=== PATIENT | female | born 1995 | race African-American/Black ===

== ENCOUNTER 2017-04-13 20:19 | Emergency (ER) | payer MEDICAID, OTHER ==
[~2017-04-13] VITALS: Ht 162.6 cm; Wt 54.4 kg
[~2017-04-13 20:19] MED LIST: BACTRIM DS TAB1 EAC1 ORAL; BACTROBAN 2% OI15 GM TOPIC; NKM
--- NOTE | 2017-04-13 21:42 | Emergency Room Report ---
History of Present Illness General Chief Complaint: Abdominal Pain Source: Patient, Medical Record Present Illness HPI This is a 21-year-old female with history of chronic abdominal pain since she was little per patient. She never had a GI workup. She usually go to the hospital. She had negative CT scan labwork here. She gets with chief complaint of generalized abdominal pain but mostly epigastric area. [place] burning sensation. Onset last night. No nausea no vomiting. No fever or chills. Pain is 7/10. No other complaint. Allergies: Coded Allergies: AMOXICILLIN (Verified Allergy, Mild, Hives, 07/27/12) PENICILLINS (Verified Allergy, Hives, 07/27/12) Patient History Past Medical History: see triage record, old chart reviewed Past Surgical History: none Pertinent Family History: none Social History: Denies: smoking Last Menstrual Period: Mar 172016 Now: No Immunizations: other Reviewed Nursing Documentation: PMH: Agreed, PSxH: Agreed Nursing Documentation-PMH Hx Cardiac Problems: No - MILD SCOLIOSIS Review of Systems Eye: Denies: eye pain, blurred vision ENT: Denies: ear pain, nose congestion, throat swelling Respiratory: Denies: cough, shortness of breath Cardiovascular: Denies: chest pain, palpitations Gastrointestinal: Reports: abdominal pain, Denies: diarrhea, nausea, vomiting Musculoskeletal: Denies: back pain, joint pain Skin: Denies: rash Neurological: Denies: headache, numbness Endocrine: Denies: increased thirst, increased urine Hematologic/Lymphatic: Denies: easy bruising All Other Systems: negative except mentioned in HPI Physical Exam Vital Signs Date Time Temp Pulse Resp B/P (MAP) Pulse Ox O2 Delivery O2 Flow Rate FiO2 04/13/17 20:49 99.0 98 16 111/66 100 Room Air monos unremarkable Sp02 EP Interpretation: reviewed, normal General Appearance: well appearing, no apparent distress, alert Head: normocephalic, atraumatic Eyes: bilateral eye PERRL, bilateral eye EOMI ENT: hearing grossly normal, normal pharynx Neck: full range of motion, supple, no meningismus Respiratory: chest non-tender, lungs clear, normal breath sounds Cardiovascular #1: regular rate, rhythm, no murmur Gastrointestinal: normal bowel sounds, no mass, no organomegaly, no bruit, non- distended, tenderness - Mild epigastric Musculoskeletal: back normal, gait/station normal, normal range of motion Psychiatric: mood/affect normal Skin: warm/dry Medical Decision Making Diagnostic Impression: Primary Impression: Abdominal pain Qualified Codes: R10.13 - Epigastric pain Additional Impression: UTI (urinary tract infection) Qualified Codes: N30.00 - Acute cystitis without hematuria ER Course She with abdominal pain. Pain resolved now. No evidence of ACS, acute abdomen or back here obstruction. She does have urinary tract infection. We'll discharge home. Lab Results Impression labs normal Last Vital Signs Date Time Temp Pulse Resp B/P (MAP) Pulse Ox O2 Delivery O2 Flow Rate FiO2 04/13/17 20:49 99.0 98 16 111/66 100 Room Air Status: improved Disposition: HOME, SELF-CARE Condition: Stable Scripts Omeprazole (OMEPRAZOLE) 40 Mg Capsule. 40 MG ORAL TWICE A DAY, #30 CAP Prov: LIZ NOLASCO M.D. 04/13/17 Nitrofurantoin Monohyd/M-Cryst (Nitrofurantoin [place]-Mcr 100 mg) 100 Mg Capsule 100 MG ORAL Q12H, #14 CAP Prov: LIZ NOLASCO M.D. 04/13/17 Referrals: [facility],REFERRING (PCP) Additional Instructions: Followup with your in 7 days. Return if symptom worsen. LIZ NOLASCO M.D. Apr 13, 2017 21:42
[2017-04-13] MEDS ORDERED: Mylanta II UD 30ml ORAL ONE (21:45)
[2017-04-13 22:16] LABS: APPEARANCE,URINE SLIGHTLY CLOUDY; BILIRUBIN, URINE NEGATIVE (NEGATIVE); COLOR,URINE PALE YELLOW; GLUCOSE, URINE (UA) NEGATIVE (NEGATIVE); KETONES,URINE 3+ (NEGATIVE); LEUKOCYTE ESTERASE ,URINE 3+ (NEGATIVE); NITRITE,URINE POSITIVE (NEGATIVE); PH,URINE 5 (4.5-8.0); PROTEIN,URINE 2+ (NEGATIVE); UROBILINOGEN,URINE NORMAL MG/DL (0.0-1.0)
[2017-04-13 22:22] LABS: ANION GAP 9 mmol/L (5-15); BLOOD UREA NITROGEN 9 mg/dL (7-18); CALCIUM 8.3 MG/DL (8.5-10.1); CARBON DIOXIDE 26 MMOL/L (21-32); CHLORIDE 104 MMOL/L (98-107); CREATININE 0.8 MG/DL (0.55-1.30); POTASSIUM 3.6 MMOL/L (3.5-5.1); SODIUM 139 MMOL/L (136-145)
[2017-04-13 22:26] LABS: BASOPHILS % (AUTO) 1.4 % (0.0-2.0); EOSINOPHILS % (AUTO) 0.2 % (0.0-3.0); HEMATOCRIT 34.7 % (37.0-47.0); HEMOGLOBIN 11.7 G/DL (12.0-16.0); LYMPHOCYTES % (AUTO) 22.2 % (20.0-45.0); MEAN CORPUSCULAR VOLUME 98 FL (80-99); MONOCYTES % (AUTO) 8.6 % (1.0-10.0); NEUTROPHILS % (AUTO) 67.7 % (45.0-75.0); PLATELET COUNT 180 K/UL (150-450); RED BLOOD COUNT 3.56 M/UL (4.20-5.40); RED CELL DISTRIBUTION WIDTH 11.8 % (11.6-14.8); WHITE BLOOD COUNT 13.2 K/UL (4.8-10.8)
[2017-04-13 22:27] LABS: ALANINE AMINOTRANSFERASE 27 U/L (12-78); ALBUMIN 4.2 G/DL (3.4-5.0); ALKALINE PHOSPHATASE 65 U/L (46-116); ASPARTATE AMINO TRANSFERASE 27 U/L (15-37); BILIRUBIN,TOTAL 0.4 MG/DL (0.2-1.0)
[2017-04-13] MEDS ORDERED: cefTRIAXone 1 GM in NS 55 ML IVPB ONE (22:30)
[2017-04-13] MEDS ORDERED: OMEPRAZOLE40 M1 ORAL (22:34)
[2017-04-13] MEDS ORDERED: MACROBID100 MG ORAL (22:34)
[2017-04-13 22:54] VITALS: BP_SYST 111; BP_SYST 115; BP_DIAS 66; BP_DIAS 71
== END 2017-04-13 22:55 | disposition home or self-care (01) ==
LOC: EMR 21:33
DX: R10.13 Epigastric pain (principal); Z88.0 Allergy status to penicillin; Z88.1 Allergy status to other antibiotic agents
CPT/HCPCS: 36415; 80053; 81003; 81025; 83690; 85025; 87086; 87181; 99284

== ENCOUNTER 2017-09-08 23:10 | Emergency (ER) | payer MEDICAID ==
[~2017-09-08] VITALS: Ht 162.6 cm; Wt 54.4 kg
[~2017-09-08 23:10] MED LIST changes: +MACROBID100 MG ORAL; +OMEPRAZOLE40 M1 ORAL
[2017-09-08 23:25] VITALS: BP 99/57
--- NOTE | 2017-09-08 23:42 | Emergency Room Report ---
History of Present Illness General Chief Complaint: Diarrhea Source: Patient Present Illness HPI Is a 21-year-old female with no past medical history. She presents with chief point of diarrhea and a work note. On Saturday she has a couple episode diarrhea. It resolved. When she went to work yesterday she was told that she need a work note in order to go back to work. She has no symptoms right now. No abdominal pain. No vomiting. Diarrhea was watery. 2 to 3 episodes. Allergies: Coded Allergies: AMOXICILLIN (Verified Allergy, Mild, Hives, 07/27/12) PENICILLINS (Verified Allergy, Hives, 07/27/12) Patient History Past Medical History: see triage record, old chart reviewed Past Surgical History: none Pertinent Family History: none Social History: Denies: smoking Last Menstrual Period: 09/01/17 : 0 Para: 0 Immunizations: other Reviewed Nursing Documentation: PMH: Agreed; PSxH: Agreed Nursing Documentation-PMH Hx Cardiac Problems: No - MILD SCOLIOSIS Review of Systems Eye: Denies: eye pain, blurred vision ENT: Denies: ear pain, nose congestion, throat swelling Respiratory: Denies: cough, shortness of breath Cardiovascular: Denies: chest pain, palpitations Gastrointestinal: Reports: diarrhea; Denies: abdominal pain, nausea, vomiting Musculoskeletal: Denies: back pain, joint pain Skin: Denies: rash Neurological: Denies: headache, numbness Endocrine: Denies: increased thirst, increased urine Hematologic/Lymphatic: Denies: easy bruising All Other Systems: negative except mentioned in HPI Physical Exam Vital Signs Date Time Temp Pulse Resp B/P (MAP) Pulse Ox O2 Delivery O2 Flow Rate FiO2 09/08/17 23:15 98.1 61 16 87/57 98 Room Air 98.1 Sp02 EP Interpretation: reviewed, normal General Appearance: well appearing, no apparent distress, alert Head: normocephalic, atraumatic Eyes: bilateral eye PERRL, bilateral eye EOMI ENT: hearing grossly normal, normal pharynx Neck: full range of motion, supple, no meningismus Respiratory: chest non-tender, lungs clear, normal breath sounds Cardiovascular #1: regular rate, rhythm, no murmur Gastrointestinal: normal bowel sounds, non tender, no mass, no organomegaly, no bruit, non-distended Musculoskeletal: back normal, gait/station normal, normal range of motion Psychiatric: mood/affect normal Skin: warm/dry Medical Decision Making Diagnostic Impression: Primary Impression: Diarrhea Qualified Codes: R19.7 - Diarrhea, unspecified ER Course Patient had diarrhea for less than 24 hours. Symptom resolved now. She's not infectious. Can go back to work. Last Vital Signs Date Time Temp Pulse Resp B/P (MAP) Pulse Ox O2 Delivery O2 Flow Rate FiO2 09/08/17 23:15 98.1 61 16 87/57 98 Room Air 98.1 Status: improved Disposition: HOME, SELF-CARE Condition: Stable Patient Instructions: Diarrhea, Adult Additional Instructions: follow-up with your doctor as needed. Return if worse. LIZ NOLASCO M.D. September 08, 2017 23:42
[2017-09-08 23:50] VITALS: BP 99/57
== END 2017-09-08 23:50 | disposition home or self-care (01) ==
LOC: EMR 23:30
DX: R19.7 Diarrhea, unspecified (principal); Z88.0 Allergy status to penicillin
CPT/HCPCS: 99283

== ENCOUNTER 2017-10-24 07:40 | Emergency (ER) | payer MEDICAID ==
[~2017-10-24] VITALS: Ht 162.6 cm; Wt 54.4 kg
[2017-10-24] MEDS ORDERED: Bactrim-DS 1 tab ORAL ONE (09:15)
[2017-10-24] MEDS ORDERED: Bacitracin Oint UD TOPIC ONE (09:15)
--- NOTE | 2017-10-24 09:16 | Emergency Room Report ---
History of Present Illness General Chief Complaint: Skin Rash/Abscess Source: Patient Present Illness HPI Patient presents with labial swelling and tenderness. This has been for 3 days. Started as ingrown hair. No fevers, chills, dysuria, vaginal discharge. Pain rated at 7/10, burning pressure, constant and not radiating. Not sexually active. There is a bump in her femoral area on that side. Possibly some drainage. No major medical problems. No URI sy, other rashes, change in bowels. Allergies: Coded Allergies: AMOXICILLIN (Verified Allergy, Mild, Hives, 07/27/12) PENICILLINS (Verified Allergy, Hives, 07/27/12) Patient History Past Medical History: see triage record Social History: Denies: smoking Social History Narrative working Last Menstrual Period: 10/01/17 Reviewed Nursing Documentation: PMH: Agreed; PSxH: Agreed Nursing Documentation-PMH Past Medical History: No History, Except For Review of Systems All Other Systems: negative except mentioned in HPI Physical Exam Vital Signs Date Time Temp Pulse Resp B/P (MAP) Pulse Ox O2 Delivery O2 Flow Rate FiO2 10/24/17 07:56 98.6 61 16 103/61 97 Room Air 98.6 Sp02 EP Interpretation: reviewed, normal General Appearance: well appearing, no apparent distress Head: normocephalic, atraumatic Eyes: bilateral eye normal inspection, bilateral eye PERRL ENT: hearing grossly normal, normal voice, moist mucus membranes Neck: full range of motion, supple Respiratory: lungs clear, no respiratory distress, speaking full sentences Cardiovascular #1: regular rate, rhythm Cardiovascular #2: 2+ radial (R) Gastrointestinal: normal inspection, normal bowel sounds, non tender, soft, no mass Genitourinary: no CVA tenderness, other - nodule without fluctuance R labia majora 1X1 cm Musculoskeletal: no calf tenderness Neurologic: alert, normal gait Psychiatric: mood/affect normal Skin: no rash Lymphatic: inguinal node tender (R) Medical Decision Making Diagnostic Impression: Primary Impression: Bartholin gland cyst ER Course Patient with Bartholin's cyst R with swelling and induration. DDx: abscess, cellulitis, inflamed cyst. Consideration for I and D but will treat with oral antibiotics to see if improved. May still need I and D in the future. Will focus also on local care. UA sent. Some pyuria (contaminated specimen). Preg neg. Patient improved with treatment. Patient stable for outpatient observation and treatment. Laboratory Tests Test 10/24/17 09:00 Urine Color Pale yellow Urine Appearance Cloudy Urine pH 7 (4.5-8.0) Urine Specific [place] 1.005 (1.005-1.035) Urine Protein Negative (NEGATIVE) Urine Glucose (UA) Negative (NEGATIVE) Urine Ketones Negative (NEGATIVE) Urine Occult Blood Negative (NEGATIVE) Urine Nitrite Negative (NEGATIVE) Urine Bilirubin Negative (NEGATIVE) Urine Urobilinogen Normal MG/DL (0.0-1.0) Urine Leukocyte Esterase 1+ (NEGATIVE) H Urine RBC 0-2 /HPF (0 - 2) Urine WBC 5-10 /HPF (0 - 2) H Urine Squamous Epithelial Cells Moderate /LPF (NONE/OCC) H Urine Bacteria Few /HPF (NONE) Urine HCG, Qualitative Negative (NEGATIVE) Last Vital Signs Date Time Temp Pulse Resp B/P (MAP) Pulse Ox O2 Delivery O2 Flow Rate FiO2 10/24/17 09:20 78 18 108/66 97 Room Air 10/24/17 07:56 98.6 98.6 Status: improved Disposition: HOME, SELF-CARE Condition: Improved Scripts Tramadol Hcl* (ULTRAM*) 50 Mg Tablet 50 MG ORAL Q6H PRN for For Pain, #10 TAB 0 Refills Prov: Jacinto Carlton M.D. 10/24/17 Ibuprofen* (MOTRIN*) 600 Mg Tablet 600 MG ORAL Q6H PRN for For Pain, #20 TAB Prov: Jacinto Carlton M.D. 10/24/17 Bacitracin (Bacitracin) 28.4 Gm Oint...g. 1 APPLIC TOPIC BID, #20 GM Prov: Jaicnto Carlton M.D. 10/24/17 Trimethoprim/Sulfamethoxazole 160/800* (BACTRIM DS TABLET*) 1 Each Tablet 1 TAB ORAL Q12H, #14 TAB 0 Refills Prov: Jacinto Carlton M.D. 10/24/17 Jacinto Carlton M.D. Oct 24, 2017 09:16
[2017-10-24] MEDS ORDERED: TRAMADOL HCL50 MG ORAL (09:19)
[2017-10-24] MEDS ORDERED: BACITRACIN15 GM TOPIC (09:19)
[2017-10-24] MEDS ORDERED: IBUPROFEN600 MG ORAL (09:19)
[2017-10-24] MEDS ORDERED: BACTRIM DS TAB1 EAC1 ORAL (09:19)
[2017-10-24 09:20] VITALS: BP 108/66
[2017-10-24 09:25] LABS: APPEARANCE,URINE CLOUDY; BILIRUBIN, URINE NEGATIVE (NEGATIVE); COLOR,URINE PALE YELLOW; GLUCOSE, URINE (UA) NEGATIVE (NEGATIVE); KETONES,URINE NEGATIVE (NEGATIVE); LEUKOCYTE ESTERASE ,URINE 1+ (NEGATIVE); NITRITE,URINE NEGATIVE (NEGATIVE); PH,URINE 7 (4.5-8.0); PROTEIN,URINE NEGATIVE (NEGATIVE); UROBILINOGEN,URINE NORMAL MG/DL (0.0-1.0)
== END 2017-10-24 09:30 | disposition home or self-care (01) ==
LOC: EMR 08:46
DX: N75.0 Cyst of Bartholin's gland (principal); Z88.0 Allergy status to penicillin
CPT/HCPCS: 81003; 81025; 99284

== ENCOUNTER 2018-11-01 21:19 | Emergency (ER) | payer MEDICAID ==
[~2018-11-01] VITALS: Ht 162.6 cm; Wt 54.4 kg
[~2018-11-01 21:19] MED LIST changes: +BACITRACIN15 GM TOPIC; +FLUCONAZOLE100 MG ORAL; +IBUPROFEN600 MG ORAL; +NITROFURANTOIN100 M2 ORAL; +TRAMADOL HCL50 MG ORAL
[2018-11-01 21:40] VITALS: BP 114/77
--- NOTE | 2018-11-01 21:40 | NUR ---
ED Nurse Note: PT AMBULATED TO ED C/O RIGHT BREAST PAIN SINCE LAST NIGHT. PT STATES SHE FEELS A BUMP.
[2018-11-01] MEDS ORDERED: IBUPROFEN600 MG ORAL (22:41)
--- NOTE | 2018-11-01 23:00 | NUR ---
ER DISCHARGE NOTE: Patient is cleared to be discharged per ERMD, pt is aox4, on room air, with stable vital signs. pt was given dc and prescription instructions, pt was able to verbalize understanding, pt id band removed. pt is able to ambulate with steady gait. pt took all belongings.
[2018-11-01 23:32] VITALS: BP 115/74
--- NOTE | 2018-11-03 22:04 | Emergency Room Report ---
History of Present Illness General Chief Complaint: General Complaint Source: Patient Present Illness Allergies: Coded Allergies: AMOXICILLIN (Verified Allergy, Mild, Hives, 07/27/12) PENICILLINS (Verified Allergy, Hives, 07/27/12) Patient History Last Menstrual Period: 10/12/18 Now: No : 0 Para: 0 Nursing Documentation-[facility] Past Medical History: No History, Except For Hx Cerebrovascular Accident: Yes - Anemia Physical Exam Vital Signs Date Time Temp Pulse Resp B/P (MAP) Pulse Ox O2 Delivery O2 Flow Rate FiO2 11/01/18 21:33 98.1 67 17 114/77 (89) 99 Room Air Medical Decision Making Diagnostic Impression: Primary Impression: Breast lump Labs Test 11/01/18 22:00 Urine HCG, Qualitative Negative (NEGATIVE) Last Vital Signs Date Time Temp Pulse Resp B/P (MAP) Pulse Ox O2 Delivery O2 Flow Rate FiO2 11/01/18 23:32 98.1 72 17 115/74 100 Room Air Status: improved Disposition: HOME, SELF-CARE Condition: Stable Scripts Ibuprofen* (MOTRIN*) 600 Mg Tablet 600 MG ORAL Q6H PRN for For Pain, #20 TAB Prov: Sabino Rosenbaum MD 11/01/18 Referrals: NON PHYSICIAN (PCP) Patient Instructions: Breast Cyst Additional Instructions: Follow up with your primary care physician for recheck and further imaging. Sabino Rosenbaum MD Nov 03, 2018 22:04
== END 2018-11-01 23:00 | disposition home or self-care (01) ==
LOC: EMR 21:50
DX: N63.0 Unspecified lump in unspecified breast (principal)
CPT/HCPCS: 81025; 99283